=== PATIENT | female | born 1980 | race African-American/Black ===

== ENCOUNTER 2016-12-05 14:37 | Outpatient (RCR) | payer OTHER | END 2016-12-06 | LOC: M PT 14:37 | PROVIDERS: ATTEND Pain Medicine Interventional Pain Medicine | DX: Z51.89 Encounter for other specified aftercare (principal); Z91.89 Other specified personal risk factors, not elsewhere classified; M25.512 Pain in left shoulder; M47.812 Spondylosis without myelopathy or radiculopathy, cervical region; M54.2 Cervicalgia; M79.1 Myalgia; M54.16 Radiculopathy, lumbar region ==

== ENCOUNTER → 2017-01-03 | Outpatient (RCR) | payer OTHER | LOC: M PT 12-20 14:32 | PROVIDERS: ATTEND Pain Medicine Interventional Pain Medicine | DX: Z51.89 Encounter for other specified aftercare (principal); Z91.89 Other specified personal risk factors, not elsewhere classified; M25.512 Pain in left shoulder; M47.812 Spondylosis without myelopathy or radiculopathy, cervical region; M54.2 Cervicalgia; M79.1 Myalgia; M54.16 Radiculopathy, lumbar region ==

== ENCOUNTER 2017-01-23 14:23 | Outpatient (RCR) | payer OTHER | END 2017-01-26 14:58 | disposition home or self-care (01) | LOC: M PT 14:23 | PROVIDERS: ATTEND Pain Medicine Interventional Pain Medicine | DX: Z51.89 Encounter for other specified aftercare (principal); Z91.89 Other specified personal risk factors, not elsewhere classified; M25.519 Pain in unspecified shoulder; M25.512 Pain in left shoulder; M47.812 Spondylosis without myelopathy or radiculopathy, cervical region; M54.2 Cervicalgia; M79.1 Myalgia; M54.16 Radiculopathy, lumbar region ==

== ENCOUNTER → 2017-03-15 | Outpatient (CLI) | payer OTHER ==
[~2017-03-15] MED LIST: AMAN100C18; AMOX875T PO; OLAN10TA2
--- NOTE | 2017-03-16 02:53 | REP ---
Clinical: Pain. Technique: AP, lateral, sunrise views of the right knee. Findings: Mild age-related changes are appreciated. No overt osteoarthritic degenerative changes are identified. No acute fracture dislocation. No effusion. Impression: Mild age-related changes. If the patient remains symptomatic consider MRI for further investigation. Signed by Elvis Benz MD 03/16/2017 02:45 A
== END ==
LOC: M RAD 14:07
PROVIDERS: ATTEND Family Medicine Addiction Medicine
DX: M17.11 Unilateral primary osteoarthritis, right knee (principal); M25.561 Pain in right knee

== ENCOUNTER → 2017-03-22 | Outpatient (CLI) | payer OTHER ==
--- NOTE | 2017-03-22 15:48 | REP ---
Digital diagnostic bilateral mammography with CAD and focused right breast sonography: History: Lump in the right breast. Right breast pain. No comparison breast imaging. Mammographic findings: Skin markers are affixed to the skin at the site of two palpable lumps in the right breast. Routine right breast views are augmented by magnified focal spot compression CC, MLO and true ML views. Mammographic views bilaterally show heterogeneously dense fibroglandular tissue in both breasts. This may inhibit the sensitivity of mammography. There is no spiculation, mass, microcalcification or worrisome skin change at the site of either palpable lump in the right breast or elsewhere in either breast mammographically. No suspicious mammographic finding. Sonographic findings: Focused right breast sonography is performed from 9 o'clock to 11 o'clock with a palpable lump at 10 o'clock and from 5 o'clock to 7 o'clock with the second palpable lump at 6 o'clock. In both regions, heterogeneous fibroglandular background echotexture is seen by sonography. No cyst, mass or suspicious acoustic shadowing is seen. Impression: BIRADS category 1 negative bilateral breast imaging. This negative report should not dissuade one from biopsy of a palpable lump depending on its clinical characteristics. Clinical followup is advised. This mammogram was interpreted with the aid of an FDA-approved computer-aided detection system. The patient states she/he had a clinical breast exam in March 2017. The patient letter being requested is m2 dense. Signed by Jalen Siegel MD 03/22/2017 03:55 P
== END ==
LOC: M RAD 13:30
PROVIDERS: ATTEND Obstetrics & Gynecology
DX: N63 Unspecified lump in breast (principal)

== ENCOUNTER 2017-05-19 22:23 | Emergency (ER) | payer OTHER ==
[~2017-05-19] VITALS: Ht 154.9 cm; Wt 77.1 kg
[2017-05-19] MEDS ORDERED: AMAN100C18 (22:40)
[2017-05-19] MEDS ORDERED: OLAN10TA2 (22:40)
[2017-05-20] MEDS ORDERED: MAGIC MOUTHWASH SUSPENSION BTL SS ONE (00:30)
[2017-05-20] MEDS ORDERED: AMOXICILLIN 500 MG CAP PO ONE (00:30)
[2017-05-20] MEDS ORDERED: AMOX875T PO (00:33)
[2017-05-20 00:42] VITALS: BP 117/72
== END 2017-05-20 01:40 | disposition home or self-care (01) ==
LOC: M ED 22:23
DX: J02.0 Streptococcal pharyngitis (principal); Z87.891 Personal history of nicotine dependence

== ENCOUNTER → 2018-01-11 | Outpatient (REF) | payer OTHER ==
[2018-01-11 14:19] LABS: ALBUMIN 4.1 GM/DL (3.2-5.2); ALBUMIN/GLOBULIN RATIO 1.24 (1.00-1.93); ALKALINE PHOSPHATASE 59 U/L (45-117); ALT/SGPT 21 U/L (12-78); ANION GAP 8 MEQ/L (8-16); AST/SGOT 4 U/L (7-37); BILIRUBIN,TOTAL 0.4 MG/DL (0.2-1.0); BLOOD UREA NITROGEN 10 MG/DL (7-18); CALCIUM LEVEL 8.5 MG/DL (8.5-10.1); CARBON DIOXIDE LEVEL 25 MEQ/L (21-32); CHLORIDE LEVEL 109 MEQ/L (98-107); CHOLESTEROL LEVEL 201 MG/DL (<200); CHOLESTEROL RISK RATIO 5.289 (<5); CREATININE FOR GFR 0.81 MG/DL (0.55-1.30); GLOMERULAR FILTRATION RATE > 60.0 (>60); GLUCOSE, FASTING 98 MG/DL (70-100); HDL CHOLESTEROL 38 MG/DL (>40); LDL CHOLESTEROL 148.8 MG/DL (<100); NON-HDL-C 163 MG/DL; POTASSIUM SERUM 4.5 MEQ/L (3.5-5.1); SODIUM LEVEL 142 MEQ/L (136-145); TOTAL PROTEIN 7.4 GM/DL (6.4-8.2); TRIGLYCERIDES LEVEL 71 MG/DL (<150)
== END ==
LOC: M LAB REF 13:04
DX: Z00.01 Encounter for general adult medical examination with abnormal findings (principal)
CPT/HCPCS: 84443

== ENCOUNTER 2019-08-30 13:34 | Emergency (ER) | payer OTHER ==
[~2019-08-30] VITALS: Ht 154.9 cm; Wt 82.6 kg
[2019-08-30 13:35] VITALS: BP 118/75
[2019-08-30] MEDS ORDERED: GABA-843 PO (13:43)
[2019-08-30] MEDS ORDERED: FLUTISP (13:43)
[2019-08-30 14:21] LABS: BASO % 0.3 % (0.0-1.0); EOS # 0.2 10^3/uL (0.0-0.5); EOS % 2.2 % (0.0-3.0); HEMOGLOBIN 12.9 g/dl (12.0-15.5); LYMPH % 31.3 % (24.0-44.0); MEAN CORPUSCULAR HGB CONC 33.1 g/dl (32.0-36.5); MEAN CORPUSCULAR VOLUME 84.8 fl (80.0-96.0); MONO # 0.9 10^3/uL (0.0-0.8); MONO % 9.1 % (0.0-5.0); NEUTROPHILS # 5.4 10^3/uL (1.5-8.5); NEUTROPHILS % 56.5 % (36.0-66.0); PLATELET COUNT, AUTOMATED 178 10^3/uL (150-450); WHITE BLOOD COUNT 9.6 10^3/uL (4.0-10.0)
[2019-08-30 15:09] LABS: BLOOD UREA NITROGEN 5 MG/DL (7-18); CALCIUM LEVEL 8.9 MG/DL (8.5-10.1); CARBON DIOXIDE LEVEL 27 MEQ/L (21-32); CHLORIDE LEVEL 104 MEQ/L (98-107); CREATININE FOR GFR 0.78 MG/DL (0.55-1.30); GLOMERULAR FILTRATION RATE > 60.0 (>60); GLUCOSE, FASTING 76 MG/DL (70-100); HCG, SERUM QUANTITATIVE 35979 MIU/ML; POTASSIUM SERUM 3.9 MEQ/L (3.5-5.1); SODIUM LEVEL 137 MEQ/L (136-145)
--- NOTE | 2019-08-30 19:29 | REP ---
FIRST TRIMESTER ULTRASOUND: Real-time sonographic evaluation of the gravid uterus performed. There is a single living intrauterine gestation. The estimated gestational age is 7 weeks 5 days based on a crown rump length of 14 mm, EDC 04/12/2020. heart rate 160 beats per minute. There is no subchorionic hemorrhage. No maternal adnexal region abnormality is seen. There is no evidence of ovarian torsion with duplex Doppler evaluation. Electronically Signed by Ryne Elliott MD 08/31/2019 03:33 P
== END 2019-08-30 18:06 | disposition home or self-care (01) ==
LOC: M ED 13:34
DX: O26.851 Spotting complicating pregnancy, first trimester (principal); Z3A.01 Less than 8 weeks gestation of pregnancy; Z86.19 Personal history of other infectious and parasitic diseases; Z88.6 Allergy status to analgesic agent

== ENCOUNTER → 2019-09-23 | Outpatient (REF) | payer OTHER ==
[~2019-09-23] MED LIST changes: +FLUTISP; +GABA-843 PO
[2019-09-23 13:57] LABS: BASO % 0.4 % (0.0-1.0); EOS # 0.2 10^3/uL (0.0-0.5); EOS % 2.8 % (0.0-3.0); HEMATOCRIT 38.8 % (36.0-47.0); HEMOGLOBIN 12.2 g/dl (12.0-15.5); LYMPH # 3.1 10^3/uL (1.5-5.0); LYMPH % 37.6 % (24.0-44.0); MEAN CORPUSCULAR HEMOGLOBIN 27.2 pg (27.0-33.0); MEAN CORPUSCULAR HGB CONC 31.4 g/dl (32.0-36.5); MEAN CORPUSCULAR VOLUME 86.4 fl (80.0-96.0); MONO # 0.7 10^3/uL (0.0-0.8); MONO % 7.8 % (0.0-5.0); NEUTROPHILS # 4.2 10^3/uL (1.5-8.5); NEUTROPHILS % 50.8 % (36.0-66.0); PLATELET COUNT, AUTOMATED 210 10^3/uL (150-450); RED BLOOD COUNT 4.49 10^6/uL (4.00-5.40); WHITE BLOOD COUNT 8.3 10^3/uL (4.0-10.0)
[2019-09-23 14:17] LABS: TOTAL 25(OH) VITAMIN D 9.9 NG/ML (30.0-100.0)
[2019-09-23 14:48] LABS: ALT/SGPT 37 U/L (12-78); BILIRUBIN,TOTAL 0.2 MG/DL (0.2-1.0); BLOOD UREA NITROGEN 9 MG/DL (7-18); CALCIUM LEVEL 9.2 MG/DL (8.5-10.1); CARBON DIOXIDE LEVEL 25 MEQ/L (21-32); CHLORIDE LEVEL 107 MEQ/L (98-107); CHOLESTEROL LEVEL 201 MG/DL (<200); CHOLESTEROL RISK RATIO 3.792 (<5); CREATININE FOR GFR 0.92 MG/DL (0.55-1.30); FREE T4 0.99 NG/DL (0.76-1.46); GLOMERULAR FILTRATION RATE > 60.0 (>60); GLUCOSE, FASTING 90 MG/DL (70-100); HDL CHOLESTEROL 53 MG/DL (>40); LDL CHOLESTEROL 126 MG/DL (<100); NON-HDL-C 148 MG/DL; POTASSIUM SERUM 3.8 MEQ/L (3.5-5.1); SODIUM LEVEL 139 MEQ/L (136-145); TOTAL PROTEIN 7.4 GM/DL (6.4-8.2); TRIGLYCERIDES LEVEL 110 MG/DL (<150)
[2019-09-23 16:52] LABS: HEMOGLOBIN A1c 5.4 %
== END ==
LOC: M LAB REF 12:43
PROVIDERS: ATTEND Nurse Practitioner Family
DX: Z13.9 Encounter for screening, unspecified (principal)

== ENCOUNTER 2019-10-11 22:52 | Emergency (ER) | payer OTHER ==
[~2019-10-11] VITALS: Ht 154.9 cm; Wt 80.9 kg
[2019-10-11] MEDS ORDERED: NORCO, ANEXSIA 5/325MG TABLET (HYDROcodone/ACETAMINOPHEN) PO ONE (23:30)
[2019-10-11] MEDS ORDERED: PROP15DR12 (23:34)
--- NOTE | 2019-10-12 01:05 | REPVR ---
PROCEDURE INFORMATION: Exam: CT Head Without Contrast Exam date and time: 10/12/2019 12:22 AM Age: 39 years old Clinical history: Pain; Headache; Additional info: Fall with injury to head, pain and nausea TECHNIQUE: Imaging protocol: Computed tomography of the head without contrast. Radiation optimization: All CT scans at this facility use at least one of these dose optimization techniques: automated exposure control; mA and/or kV adjustment per patient size (includes targeted exams where dose is matched to clinical indication); or iterative reconstruction. COMPARISON: No relevant prior studies available. FINDINGS: Brain: Normal. No hemorrhage. Unremarkable white matter. No mass effect. Ventricles: Normal. No ventriculomegaly. Bones/joints: Unremarkable. No acute fracture. Sinuses: Mucosal thickening in the ethmoid air cells and frontal sinuses. Mastoid air cells: Visualized mastoid air cells are well aerated. Soft tissues: Unremarkable. IMPRESSION: 1. No acute intracranial abnormality. 2. Mild sinusitis. Electronically signed by: David Roca On 10/12/2019 01:05:10 AM
[2019-10-12] MEDS ORDERED: CYCL10TA PO (01:13)
[2019-10-12 01:31] VITALS: BP 109/57
--- NOTE | 2019-10-12 10:27 | REP ---
SACRUM AND COCCYX: 10/11/2019. CLINICAL HISTORY: Trauma. Pain in coccyx region after a fall. FINDINGS: No prior study. Two views show sacral ala and foramina as well as SI joints symmetric and normal. Pelvic ring intact. Pubic rami and symphysis pubis unremarkable. A few pelvic phleboliths are seen. On the lateral view, there is no displaced fracture of the sacrum. Coccyx without gross displaced fracture or focal lesion. IMPRESSION: 1. No visible fracture of the sacrum or coccyx on plain film. Electronically Signed by Scot Samson MD 10/12/2019 07:47 P
== END 2019-10-12 01:32 | disposition home or self-care (01) ==
LOC: M ED 22:52
DX: S30.0XXA Contusion of lower back and pelvis, initial encounter (principal); W00.0XXA Fall on same level due to ice and snow, initial encounter; Y92.89 Other specified places as the place of occurrence of the external cause; Z88.8 Allergy status to other drugs, medicaments and biological substances

== ENCOUNTER 2022-03-28 14:56 | Emergency (ER) | payer OTHER, SELFPAY ==
[~2022-03-28] VITALS: Ht 154.9 cm; Wt 79.4 kg
[2022-03-28 14:56] VITALS: BP 118/80
[~2022-03-28 14:56] MED LIST changes: +CYCL-707 PO; +GABA-282 PO; -GABA-843 PO; -OLAN10TA2; +OLAN1TAB20; +PROP15DR12
== END 2022-03-28 18:34 | disposition home or self-care (01) ==
LOC: M ED 14:56
DX: M54.50 Low back pain, unspecified (principal); M25.512 Pain in left shoulder; M48.061 Spinal stenosis, lumbar region without neurogenic claudication; V49.59XA Passenger injured in collision with other motor vehicles in traffic accident, initial encounter; F33.9 Major depressive disorder, recurrent, unspecified; F41.9 Anxiety disorder, unspecified; K58.9 Irritable bowel syndrome, unspecified; J30.2 Other seasonal allergic rhinitis

== ENCOUNTER 2024-09-02 12:58 | Emergency (ER) | payer SELFPAY ==
[~2024-09-02] VITALS: Ht 154.9 cm; Wt 84.7 kg
[~2024-09-02 12:58] MED LIST changes: +GABA-1172 PO; -GABA-282 PO
[2024-09-02 13:01] VITALS: BP 125/82; TEMP 96.8; O2SAT 100
[2024-09-02] MEDS ORDERED: AMOX875T2 PO (13:16)
== END 2024-09-02 14:59 | disposition left against medical advice (07) ==
LOC: M ED 12:58
DX: Z53.21 Procedure and treatment not carried out due to patient leaving prior to being seen by health care provider (principal)